=== PATIENT | male | born 1990 | race Caucasian/White ===

== ENCOUNTER 2016-06-04 12:28 | Emergency (ER) | payer SELFPAY ==
[~2016-06-04] VITALS: Ht 182.9 cm; Wt 112.4 kg
[~2016-06-04 12:28] MED LIST: ACYCLOVIR200 MG PO; AMOXICILLIN875 MG PO; BACTROBAN NASAL1 G1 TP; BENADRYL50 MG PO; CORTISPORIN-TC10 M1 BOTH EARS; FLAGYL500 MG PO; FLEXERIL10 MG PO; IBUPROFEN800 MG PO; MOTRIN800 MG PO; NAPROSYN500 MG PO; NEXIUM20 MG PO; NEXIUM40 MG PO; PRILOSEC OTC20 MG PO; TESSALON200 MG PO; ULTRACET1 TABLET PO; VENTOLIN HFA18 GM IH; ZITHROMAX Z-PA250 MG PO; ZOFRAN ODT4 MG PO; ZOFRAN4 MG PO
[2016-06-04 13:23] LABS: HEMATOCRIT 40.2 % (38.0-50.0); MCH 29.2 PG (29.0-34.0); MCHC 35.3 G/DL (30.0-36.0); MCV 82.5 FL (86-99); MEAN PLAT.VOLUME 8.9 uM^3 (9.0-12.4); PLATELET COUNT 375 K/uL (156-360); RBC DIS.WIDTH-CV 12.9 % (11.8-14.6); RBC DIS.WIDTH-SD 38.2 % (39-53); RED BLOOD COUNT 4.87 M/uL (4.00-5.50)
[2016-06-04 13:34] LABS: CHLORIDE 106 mEq/L (99-109); POTASSIUM 3.6 mEq/L (3.7-5.4); SODIUM 140 mEq/L (136-147)
[2016-06-04 13:36] LABS: GLUCOSE 94 mg/dL (70-99)
[2016-06-04 13:37] LABS: ANION GAP 9 MEQ/L (2-14)
[2016-06-04] MEDS ORDERED: OMEPRAZOLE40 M1 PO (13:39)
[2016-06-04] MEDS ORDERED: ANUSOL HC,ANUCO25 MG PR (13:39)
[2016-06-04 13:40] LABS: GFR ESTIMATE (CALCULATED) > 59 mL/min/
[2016-06-04 13:41] LABS: UREA NITROGEN (BUN) 6 mg/dL (9-23)
[2016-06-04 13:50] VITALS: BP 126/75
== END 2016-06-04 13:51 | disposition home or self-care (01) ==
LOC: EME 12:28
DX: K92.2 Gastrointestinal hemorrhage, unspecified (principal); Z88.2 Allergy status to sulfonamides
CPT/HCPCS: 80048; 85027; 86850; 86900; 86901; 99281; 99283